=== PATIENT | male | born 1985 | race Caucasian/White ===

== ENCOUNTER 2024-12-22 06:58 | Emergency (ER) | payer BC, SELFPAY ==
[2024-12-22 07:00] VITALS: BP 188/107
[2024-12-22 07:16] VITALS: BP 189/75
--- NOTE | 2024-12-22 07:32 | ED.GENMED ---
History of Present Illness
General
Chief Complaint: Urinary Symptoms
Source: patient
Exam Limitations: none
Time Seen by Provider: 12/22/24 07:20
History of Present Illness
History of Present Illness:
39yoM with a history of obesity presenting for evaluation of urinary frequency. His bladder has felt 'weird' for the past week or two. He started to experience urinary frequency as well as dysuria last night. He reports pain in the urethra with
urination. He woke up this morning and the bed was wet from sweating. He otherwise denies any fevers or chills. No hematuria, flank pain, nausea, or vomiting. He is currently in a monogamous relationship and denies any concern for STDs. He does
not regularly see a PCP. His only medication that he is taking currently is Flonase.
Past History
Past History
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
ED Past Surgical History: Other (tongue resection tumor)
Social History
Tobacco: Smoker
Alcohol: Occasional
Drug: Marijuana
Personal:
Living: with family
Phy Exam
General Physical Exam
General Presentation: well appearing and no apparent distress
General age: appears stated age
General Skin: warm and dry
General Mental: alert
ENT Exam
ENT Exam: normocephalic
Pulmonary Exam
Pulmonary Exam: no respiratory distress
Gastrointestinal Exam
Gastrointestinal Exam: soft, non distended, no cva tenderness and other (Mild tenderness in suprapubic region. No CVA tenderness. )
Genitourinary Exam Male
Exam Male: other (No testicular tenderness or swelling)
Neurological Exam
Neurological Exam: alert
Yesica Coma Scale
Eye Opening: Spontaneous
Verbal Response: Oriented
Motor Response: Obeys Commands
GCS Total Score: 15
Skin Exam
Skin Exam: normal color and warm/dry
Psychiatric Exam
Psychiatric Exam: normal mood/affect
Course
Orders/Labs/Results
Orders:
Orders
12/22/24 07:07
Urinalysis Reflex To Culture Urgent
Date Specimen was Collected: 12/22/24
Time Specimen was Collected: 07:04
Urine Microscopic Reflex Cult Urgent
12/22/24 08:08
Complete Blood Count/With Diff Urgent
Comprehensive Metabolic Panel Urgent
12/22/24 08:16
CT Abd/pel Without Iv Or Oral Urgent
Comment:
Reason For Exam: Hematuria, suprapubic pain
Abnormal Lab Results
12/22/24 12/22/24
07:07 08:08
Glucose 123 H mg/dl
(70-99)
ALT 58 H U/L
(0-50)
Ur Occult Blood Reflex 4+ A
(Negative)
Urine RBC 50-60 A /HPF
(0-2)
Urine Bacteria (Reflex) Few A
(Negative)
Urine Albumin (Reflex) 3+ A
(Neg - Trace)
12/22/24 08:08
12/22/24 08:08
Vital Signs
Initial and Last Documented VS:
Initial Vital Signs
Temp Pulse Resp BP Pulse Ox
97.7 F 74 18 188/107 99
12/22/24 07:00 12/22/24 07:00 12/22/24 07:00 12/22/24 07:00 12/22/24 07:00
Last Documented Vital Signs
Temp Pulse Resp BP Pulse Ox
97.7 F 74 18 149/89 98
12/22/24 07:00 12/22/24 07:00 12/22/24 07:00 12/22/24 08:00 12/22/24 08:00
MDM/Problems Addressed
Differential Diagnosis Includes:
39yoM here with urinary frequency and dysuria since last night. C/o suprapubic discomfort. No f/c, vomiting, flank pain. He is hypertensive with otherwise normal vital signs. He is non-toxic appearing. Mild suprapubic tenderness on exam. Testicular
exam is unremarkable. Differential diagnosis includes but is not limited to: UTI, urethritis, hyperglycemia, kidney stone
Initial ED plan: Check CBC, CMP, and UA.
*Critical Care Note
Total Time (30-74mins, 75-104mins- exclusive of procedures): Not Applicable
Update Note
Update Note:
Labs overall unremarkable including normal white count and renal function. UA with 4+ blood without signs of infection. CT abdomen added. Imaging reveals an 8 mm stone in the left bladder just beyond the left UVJ with mild left hydronephrosis
consistent with recently passed stone. On reassessment, patient does state he had some left flank pain immediately prior to going to CT. This has since resolved and he is currently asymptomatic. Supportive care discussed including hydration and
urine straining. Advised follow-up with urology. He was also instructed to establish follow-up with a PCP for his elevated blood pressure. ED return precautions discussed. Patient in agreement with plan and was discharged in stable condition.
ED Attending Note
-
Portions of this chart may have been created with voice recognition software.� Occasional wrong word or��sound alike� substitutions may have occurred due to the inherent limitations of voice recognition software.
Discharge Plan
Departure
Patient Disposition: Home (Routine Discharge)
Date of Disposition: 12/22/24
Time of Disposition: 09:55
Patient with high blood pressure during this ER visit?: Yes
Discharge Problem:
Bladder stone, Urinary frequency
Instructions: Kidney stones in adults, How to Strain Your Urine, BLOOD PRESSURE
Prescriptions:
No Action
amoxicillin-pot clavulanate 875-125 mg tablet
1 tab PO Q12H Qty: 20 0RF
dexamethasone 6 mg tablet
6 mg PO ONCE Qty: 1 0RF
Rx Instructions:
TAKE ON 01/28
Referrals:
Archie Sesay MD [Active] -
NONE,* [Family Provider] -
Activity Restrictions/Additional Instructions:
Drink plenty of fluids. Strain your urine until stone has passed. Take ibuprofen as needed for pain.
Please follow-up with a primary care provider to get your blood pressure rechecked. You should also follow-up with urology.
Return to the ER with any worsening symptoms, severe pain, fevers.
Interventions
Interventions:
*Risk Screen - Suicide Last Done: 12/22/24 07:00
*General Assessment Last Done: 12/22/24 07:00
*Neglect/Abuse Screening Last Done: 12/22/24 07:00
ED-Male Genitourinary Assessment Last Done: 12/22/24 08:03
Discharge Date and Time
Print Language: PERSIAN
[2024-12-22 07:59] VITALS: BMI 41.5
[2024-12-22 08:00] VITALS: BP 149/89
[2024-12-22 08:01] LABS: Urine Albumin 3+ (Neg - Trace); Urine Bilirubin Negative (Negative); Urine Character Clear (Clear); Urine Color Yellow; Urine Glucose Negative (Negative); Urine Ketone Negative (Negative); Urine Leukocyte Negative (Negative); Urine Nitrite Negative (Negative); Urine Specific Gravity 1.025 (<1.030); Urine Urobilinogen Negative (Neg - 1+)
[2024-12-22 08:12] LABS: Urine Occult Blood 4+ (Negative)
[2024-12-22 08:17] LABS: Urine Calcium Oxalate Crystals Present; Urine Red Blood Cell 50-60 /HPF (0-2)
[2024-12-22 08:18] LABS: Urine Bacteria Few (Negative); Urine White Cell 0-2 /HPF (0-5)
[2024-12-22 08:20] LABS: % Basophils 0.6 % (0-2); % Eosinophils 3.5 % (0-6); % Immature Granulocytes 0.3 % (0-0.5); % Lymphocytes 33.8 % (20.5-51.1); % Neutrophils 53.8 % (42.2-75.2); Absolute Eosinophils 0.2 10^3/uL (0-0.7); Absolute Lymphocytes 2.2 10^3/uL (1.2-3.4); Absolute Monocytes 0.5 10^3/uL (0.1-0.6); Absolute Neutrophils 3.5 10^3/uL (1.4-6.5); Hematocrit 41.9 % (39.0-52.0); Hemoglobin 14.4 g/dL (13.0-18.0); Mean Corp Hgb Conc. 34.4 g/dL (33.0-37.0); Mean Corpuscular Hgb 29.1 pg (27.0-31.0); Mean Corpuscular Volume 84.6 fL (80.0-94.0); Mean Platelet Volume 8.5 fL (7.4-10.4); Nucleated Red Blood Cells % 0 % (-); Platelet Count 229 10^3/uL (130-400); Red Blood Cell Count 4.95 10^6/uL (4.70-6.10); Red Cell Dist. Width 13.6 % (11.5-14.5); White Blood Cell Count 6.5 10^3/uL (4.8-10.8)
[2024-12-22 08:32] LABS: ALT (SGPT) 58 U/L (0-50); AST (SGOT) 40 U/L (17-59); Albumin 4.5 g/dl (3.5-5.0); Alkaline Phosphatase 97 U/L (38-126); Blood Urea Nitrogen 16 mg/dl (9-20); Calcium 9.3 mg/dl (8.4-10.2); Carbon Dioxide 26 mmol/L (22-30); Chloride 102 mmol/L (98-107); Estimated Creatinine Clearance > 125 ml/min; Glucose 123 mg/dl (70-99); Potassium 4.1 mmol/L (3.5-5.1); Sodium 139 mmol/L (135-145); Total Bilirubin 0.6 mg/dl (0.2-1.3); Total Protein 7.4 g/dl (6.3-8.2); eGFR > 60.00
[2024-12-22 10:32] VITALS: BP 139/77
== END 2024-12-22 10:34 | disposition home or self-care (01) ==
LOC: EMR 06:58
PROVIDERS: Physician Assistant; EMERGENCY PHYSICIAN Emergency Medicine
DX: N21.0 Calculus in bladder (principal); R35.0 Frequency of micturition; N13.30 Unspecified hydronephrosis; F17.200 Nicotine dependence, unspecified, uncomplicated
CPT/HCPCS: 99284; 74176; 80053; 81003; 81015; 85025